=== PATIENT | female | born 1940 | race Caucasian/White ===

== ENCOUNTER 2019-10-14 16:58 | Emergency (ER) | payer MEDICARE, OTHER ==
--- NOTE | 2019-10-14 17:04 | ED.PDOC ---
History of Present Illness - General Stated Complaint: head laceration Time Seen by Provider: 10/14/19 17:03 - History of Present Illness Initial Comments: 79 y/o female resident of [place] found crawling down the [place] with a laceration to her head. unknown mechanism of injury. At baseline she is confused and minimally conversant. Allergies/Adverse Reactions: Allergies NO KNOWN ALLERGY Allergy (Verified 10/14/19 17:29) Home Medications: Ambulatory Orders Acetaminophen [Tylenol Es] 500 mg PO Q6H PRN #0 tab 01/30/13 Aluminum & Magnesium Hydroxide [Maalox] 30 ml PO DAILY PRN #0 ud 01/30/13 HYDROcodone 5MG/APAP 325MG [[place] 5/325] 1 ea PO Q4H PRN #0 tab 01/30/13 Magnesium Hydroxide [Milk Of Magnesia] 30 ml PO DAILY PRN #0 ud 01/30/13 Rivastigmine 9.5MG/24Hr Patch [Exelon PATCH] 4.6 mg TOP DAILY #0 patch 01/30/13 Review of Systems - Review of Systems Unable to Obtain Due To: dementia Past Medical History (General) - Patient Medical History Hx Seizures: No Hx Stroke: No Hx Asthma: No Hx of COPD: No Hx Cardiac Disorders: No Hx Congestive Heart Failure: No Hx Pacemaker: No Hx Hypertension: No Hx Diabetes: No Hx MRSA: Yes - Buttock MRSA Source:: Wound - Social History Hx Alcohol Use: No Hx Substance Use: No Hx Physical Abuse: No Hx Emotional Abuse: No Physical Exam - Physical Exam General Appearance: Agitated, Emaciated, Frail, No apparent distress Head Injury: lacerations Eye Exam: bilateral normal ENT Exam: no evidence of ENT injury Cardiovascular/Respiratory: regular rate, rhythm, no M/R/G Gastrointestinal/Abdominal: non tender, soft Extremity Exam: no evidence of injury, other - moves all extremities Neurologic: disoriented x 3 Skin Exam: pallor - [place] Coma Score Best Eye Response ([place]): (4) open spontaneously Best Verbal Response ([place]): (2) incomprehsible sounds Best Motor Response ([place]): (5) localizes to pain Procedures - Laceration/Wound Repair Left Head Wound Length (cm): 3 Wound's Depth, Shape: superficial Wound Explored: no foreign body removed Betadine Prep?: No Wound Debrided: minimal Wound Repaired With: steri-strips - patient is very uncooperative, tossing her head, etc. I used steri strips to close the skin. Departure - Departure Clinical Impression: Laceration of head Qualifiers: Encounter type: initial encounter Location of open wound of head: scalp Foreign body presence: without foreign body Qualified Code(s): S01.01XA - Laceration without foreign body of scalp, initial encounter Disposition: Discharge to [facility] Condition: Fair Instructions: Laceration Repair With Glue (DC) Referrals: DILCIA MIDDLETON [Primary Care Provider] - 1-2 Weeks Home Medications: Ambulatory Orders Acetaminophen [Tylenol Es] 500 mg PO Q6H PRN #0 tab 01/30/13 Aluminum & Magnesium Hydroxide [Maalox] 30 ml PO DAILY PRN #0 ud 01/30/13 HYDROcodone 5MG/APAP 325MG [[place] 5/325] 1 ea PO Q4H PRN #0 tab 01/30/13 Magnesium Hydroxide [Milk Of Magnesia] 30 ml PO DAILY PRN #0 ud 01/30/13 Rivastigmine 9.5MG/24Hr Patch [Exelon PATCH] 4.6 mg TOP DAILY #0 patch 01/30/13
[2019-10-14 17:29] VITALS: TEMP 98.9
[2019-10-14 17:38] VITALS: BP 114/69
[2019-10-14 18:08] VITALS: O2SAT 98
== END 2019-10-14 18:19 ==
LOC: ER 16:58
DX: S01.01XA Laceration without foreign body of scalp, initial encounter (principal); X58.XXXA Exposure to other specified factors, initial encounter; Y92.129 Unspecified place in nursing home as the place of occurrence of the external cause